=== PATIENT | female | born 1945 | race Two or more races ===

== ENCOUNTER 2021-01-07 05:00 | Day surgery (SDC) | payer OTHER | END 2021-01-07 09:50 | disposition home or self-care (01) | LOC: AMB-ENDOS 05:00 | PROVIDERS: ATTEND Colon & Rectal Surgery | DX: K62.89 Other specified diseases of anus and rectum (principal); K64.2 Third degree hemorrhoids; K44.9 Diaphragmatic hernia without obstruction or gangrene; K31.7 Polyp of stomach and duodenum; Z20.822 Contact with and (suspected) exposure to COVID-19 ==